=== PATIENT | male | born 1990 | race Caucasian/White ===

== ENCOUNTER → 2017-02-20 | Outpatient (CLI) | payer OTHER ==
--- NOTE | 2017-02-20 16:57 | RAD ---
EXAM DESCRIPTION: Chest,2 Views CLINICAL HISTORY: IRITIS/UVEITIS COMPARISON: None. FINDINGS: Two views of the chest are submitted. Cardiac silhouette appears normal. No focal parenchymal or pleural disease. No acute bony abnormality. There is no significant pulmonary vascular engorgement. IMPRESSION: No evidence of acute cardiopulmonary disease. 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
== END | disposition home or self-care (01) ==
LOC: LAB.O 16:19
DX: H20.00 Unspecified acute and subacute iridocyclitis (principal)

== ENCOUNTER → 2017-02-21 | Outpatient (CLI) | payer OTHER | END | disposition home or self-care (01) | LOC: LAB.O 07:23 | DX: H20.00 Unspecified acute and subacute iridocyclitis (principal) ==